=== PATIENT | female | born 1925 | race Caucasian/White ===

== ENCOUNTER 2016-04-02 13:44 | Inpatient (IN) ==
[2016-04-02] MEDS: Famotidine 20 MG TABLET PO SCH (20:04)
[2016-04-03 05:25] LABS: INR 1.2; Prothrombin Time 12.6 Seconds (9.4-12.1)
[2016-04-03 05:28] LABS: Activated Partial Thrombo Time 25.9 Seconds (26.0-36.0)
[2016-04-03 05:32] LABS: Basophils % 0.5 %; Eosinophils # 0.4 K/mcL (0.0-0.6); Hematocrit 38.5 % (35.3-44.9); Immature Granulocytes % 1.1 % (0-4); Lymphocytes # 2.1 K/mcL (0.6-4.6); Lymphocytes % 27.7 %; Mean Corpuscular HGB Conc 33.8 g/dL (31.6-35.5); Mean Corpuscular Hemoglobin 30.4 pg (28.0-33.3); Mean Corpuscular Volume 90.2 fL (83.0-100.0); Monocytes # 0.8 K/mcL (0.0-1.3); Monocytes % 9.9 %; Neutrophils # 4.2 K/mcL (1.6-8.9); Platelet Count 198 K/mcL (140-400); Red Blood Count 4.27 M/mcL (3.82-4.97); Red Cell Distribution Width 12.4 % (11.5-14.5); Segmented Neutrophils % 55.8 %
[2016-04-03 05:33] LABS: BUN/Creatinine Ratio 29 (6-26); Blood Urea Nitrogen 29 mg/dL (7-20); Calcium 9.4 mg/dL (8.6-10.8); Carbon Dioxide 27 mEq/L (19-29); Chloride 106 mEq/L (98-109); Glucose 96 mg/dL (70-99); Osmolality,Calculated 298 (280-300); Potassium 4.5 mEq/L (3.5-4.5); Sodium 141 mEq/L (136-145); eGFR For African Americans > 60 (> 60); eGFR For Non-African Americans 52 (> 60)
[2016-04-03] MEDS: Aspirin 81 MG TAB.CHEW PO SCH (08:07)
[2016-04-03] MEDS: Famotidine 20 MG TABLET PO SCH (08:07)
[2016-04-03] MEDS: Metoprolol XL (24 HR) Succ 50 MG TAB.ER.24H PO SCH (08:08)
--- NOTE | 2016-04-03 08:59 | Internal Med History&Physical ---
Date of Encounter: 04/03/16 Time of Encounter: 08:54 Assessment and Plan (1) CVA (cerebral vascular accident) Current visit: Yes Status: Acute Residual generalized weakness, lack of coordination, gait abnormality. We will consult speech, PT OT to work on balance, transferred gait and improving ADL. Qualifiers: CVA mechanism: unspecified Qualified Code(s): I63.9 - Cerebral infarction, unspecified Internal Medicine - H&P: HPI Admitted From: Intrahospital Transfer Plans for Post Hospital Care: Home History of present illness: Ms. ALEXANDRA is a 89 year old female who initially presented to [facility] on March 29 with generalized weakness. Symptoms came gradually. Symptoms started approximately 1 hour prior to presentation. She had difficulty with her balance, difficulty with her speech. She was diagnosed with a CVA. On today's examination she has no specific complaint other than unsteady and lack of coordination in walking and generalized weakness. She is no chest pain. Past Med Surg Social Fam HX - Past Medical History Medical history: CVA, hyperlipidemia, hypertension, thyroid disease - Social History Smoking Status: Unknown if ever smoked - Family History Mother History Unknown: Yes Father History Unknown: Yes Internal Medicine - H&P: Meds Acetaminophen [Tylenol] 500 mg PO Q6HR PRN 04/02/16 [History] Aspirin [Aspirin] 1 tab PO DAILY 04/02/16 [History] Calcium 600 + Vit D Tablet 1 tab PO DAILY 04/02/16 [History] Clopidogrel [Plavix] 75 mg PO DAILY 04/02/16 [History] DiphenhydraMINE [Benadryl] 25 mg PO HS PRN 04/02/16 [History] Famotidine [Pepcid] 20 mg PO BID 04/02/16 [History] Garlic [Garlic] 1 cap PO DAILY 04/02/16 [History] Levothyroxine [Synthroid] 50 mcg PO DAILY 04/02/16 [History] Metoprolol XL (24 HR) Succ [Toprol XL] 50 mg PO DAILY 04/02/16 [History] Potassium Chloride 10 mEq/100mL 1 tab PO DAILY 04/02/16 [History] Simvastatin [Zocor] 1 tab PO HS 04/02/16 [History] Triamterene/HCTZ 75/50mg [Maxzide] 0.5 each PO DAILY 04/02/16 [History] Allergies No Known Allergies Allergy (Verified 04/02/16 17:37) All Systems PM: A 10-system review of systems was performed and is negative for pertinent findings except as documented above in the HPI. - Constitutional Constitutional: no chills, no fever(s), no night sweats - Cardiovascular Cardiovascular ROS IM: no chest pain, no diaphoresis, no dyspnea, no lightheadedness, no palpitations, no syncope - Respiratory Respiratory: no cough, no dyspnea, no wheezing, no excessive phlegm production - Gastrointestinal Gastrointestinal: no abdominal pain, no diarrhea, no hematemesis, no hematochezia, no melena, no nausea, no vomiting - Musculoskeletal Musculoskeletal ROS IM: no numbness, no tingling - Integumentary Integumentary IM: no rash, no unusual bruising - Neurological Neurological ROS: abnormal gait, lack of coordination, no abnormal speech - Constitutional Vitals: Temp Pulse Resp BP Pulse Ox 98.5 F 118 18 148/70 92 L 04/03/16 07:00 04/03/16 07:00 04/03/16 07:00 04/03/16 07:00 04/03/16 07:00 General appearance: Present: A&O X 3, pleasant, no acute distress - Respiratory Respiratory exam: Present: CTAB. Absent: accessory muscle use, rales, rhonchi, wheezes - Cardiovascular Cardiovascular exam: Present: RRR, +S1, +S2. Absent: diastolic murmur, gallop, rubs, systolic murmur - GI/Abdominal GI/Abdominal exam: Present: normal bowel sounds, soft, no peritoneal signs. Absent: distended, tenderness - Extremities Exam Extremities exam: Present: warm, radial pulses palpable and symetrical. Absent : calf tenderness, cyanotic, pedal edema - Expanded Neurological Exam Patient oriented to: Present: person, place, time Internal Med - H&P Results - Labs CBC & Chem 7: 04/03/16 05:10 04/03/16 05:10 Labs: Short CBC 04/03/16 Range/Units 05:10 WBC 7.5 (4.3-11.1) K/mcL Hgb 13.0 (11.5-15.4) g/dL Hct 38.5 (35.3-44.9) % Plt Count 198 (140-400) K/mcL Neutrophils # 4.2 (1.6-8.9) K/mcL BMP 04/03/16 05:10 Sodium 141 Potassium 4.5 Chloride 106 Carbon Dioxide 27 BUN 29 H Creatinine 1.01 Glucose 96 Calcium 9.4 - VTE Documentation of Mechanical Device: Graduated compression elastic hosiery
[2016-04-03] MEDS: GARLIC PO SCH (13:07)
[2016-04-03] MEDS: CALCIUM PO SCH (13:07)
[2016-04-03] MEDS: VIT D PO SCH (13:07)
[2016-04-04] MEDS: Famotidine 20 MG TABLET PO SCH (09:42)
[2016-04-04] MEDS: Metoprolol XL (24 HR) Succ 50 MG TAB.ER.24H PO SCH (09:43)
[2016-04-04] MEDS: CALCIUM PO SCH (09:43)
[2016-04-04] MEDS: GARLIC PO SCH (09:43)
[2016-04-04] MEDS: VIT D PO SCH (09:43)
[2016-04-04] MEDS: Aspirin 81 MG TAB.CHEW PO SCH (09:43)
--- NOTE | 2016-04-04 13:15 | Internal Med Progress Note ---
Date of Encounter: 04/04/16 Time of Encounter: 13:13 - Assessment and plan (1) CVA (cerebral vascular accident) Current Visit: Yes Status: Acute Assessment and plan: Patient's doing fine with a wheeled walker she probably will do 3 weeks here she is setup advanced age but was independent up to this point. Qualifiers: CVA mechanism: unspecified Qualified Code(s): I63.9 - Cerebral infarction, unspecified - Time Spent With Patient less than 15 minutes - Subjective Interval history: Patient denies any sort of need at . My only concern is she has tremor and head luis and turbid evaluated and I was wondering very my not be a bad idea when she is discharged to make her appointment to see a neurologist. this point - Constitutional Vitals: Temp Pulse Resp BP Pulse Ox 98.3 F 60 18 157/71 92 L 04/04/16 07:26 04/04/16 07:26 04/04/16 07:26 04/04/16 07:26 04/04/16 07:26 General appearance: Present: A&O X 3, pleasant, no acute distress - Head Head exam: Present: normal inspection - Neck Neck exam general surgery: Present: supple, trachea midline. Absent: lymphadenopathy - Respiratory Respiratory exam: Present: CTAB. Absent: accessory muscle use, rales, rhonchi, wheezes - Cardiovascular Cardiovascular exam: Present: RRR, +S1, +S2. Absent: diastolic murmur, gallop, rubs, systolic murmur Internal Medicine: Result - Labs CBC & Chem 7: 04/03/16 05:10 04/03/16 05:10 Labs: UA is noted - ABG Interpretation ABG results: PT/INR, D-dimer PT 12.6 Seconds (9.4-12.1) H 04/03/16 05:10 - VTE Documentation of Mechanical Device: Graduated compression elastic hosiery Consult Discharge Plan - Plan Referrals: Valente Carter MD [Primary Care Provider] -
[2016-04-05] MEDS: Aspirin 81 MG TAB.CHEW PO SCH (08:12)
[2016-04-05] MEDS: Famotidine 20 MG TABLET PO SCH (08:12)
[2016-04-05] MEDS: CALCIUM PO SCH (08:13)
[2016-04-05] MEDS: GARLIC PO SCH (08:13)
[2016-04-05] MEDS: VIT D PO SCH (08:13)
[2016-04-05] MEDS: Metoprolol XL (24 HR) Succ 50 MG TAB.ER.24H PO SCH (08:13)
--- NOTE | 2016-04-05 13:49 | Internal Med Progress Note ---
Date of Encounter: 04/05/16 Time of Encounter: 13:47 - Assessment and plan (1) CVA (cerebral vascular accident) Current Visit: Yes Status: Acute Assessment and plan: Asians working with PT OT DTRs speech. Qualifiers: CVA mechanism: unspecified Qualified Code(s): I63.9 - Cerebral infarction, unspecified - Time Spent With Patient less than 15 minutes - Subjective Interval history: Patient is smiling pleasant socializing with family to spending in therapy. - Constitutional Vitals: Temp Pulse Resp BP Pulse Ox 97.3 F L 58 18 134/60 93 L 04/05/16 07:26 04/05/16 07:26 04/05/16 07:26 04/05/16 07:26 04/05/16 07:26 General appearance: Present: A&O X 3, pleasant, no acute distress - Head Head exam: Present: atraumatic, normal inspection, normocephalic - Neck Neck exam general surgery: Present: supple, trachea midline. Absent: lymphadenopathy - Respiratory Respiratory exam: Present: CTAB. Absent: accessory muscle use, rales, rhonchi, wheezes - Cardiovascular Cardiovascular exam: Present: RRR, +S1, +S2. Absent: diastolic murmur, gallop, rubs, systolic murmur Internal Medicine: Result - Labs CBC & Chem 7: 04/03/16 05:10 04/03/16 05:10 Labs: Lab looks good encouraged by mouth intake. - ABG Interpretation ABG results: PT/INR, D-dimer PT 12.6 Seconds (9.4-12.1) H 04/03/16 05:10 - VTE Documentation of Mechanical Device: Graduated compression elastic hosiery Consult Discharge Plan - Plan Referrals: Valente Carter MD [Primary Care Provider] -
[2016-04-05] MEDS: MOM Conc 10 ML UD.LIQ PO PRN (21:50)
[2016-04-06] MEDS: Metoprolol XL (24 HR) Succ 50 MG TAB.ER.24H PO SCH (08:13)
[2016-04-06] MEDS: Famotidine 20 MG TABLET PO SCH (08:13)
[2016-04-06] MEDS: VIT D PO SCH (08:13)
[2016-04-06] MEDS: CALCIUM PO SCH (08:13)
[2016-04-06] MEDS: GARLIC PO SCH (08:13)
[2016-04-06] MEDS: Aspirin 81 MG TAB.CHEW PO SCH (08:13)
--- NOTE | 2016-04-06 17:00 | Psychological Evaluation ---
Date of Encounter: 04/06/16 Time of Encounter: 01:30 History of Present Illness History of present illness: Ms. INFANTE is a 89 year old female admitted to [facility] following a recent stroke. Ms. Infante was seen on this date to assess her current cognitive and emotional functioning. Past Medical History Medical history: Significant for CVA, hyperlipidemia, HTN and thyroid disease. - Psychiatric History Additional Psychiatric History: There is no history of psychiatric hospitalization or suicidal ideation, intention or attempt. Ms. Infante has a history of anxiety and has been treated with medications by her primary care physician. Family psychiatric hx: There is no known family history of psychiatric or mental health issues. Home Medications and Allergies Acetaminophen [Tylenol] 500 mg PO Q6HR PRN 04/02/16 [History] Aspirin [Aspirin] 1 tab PO DAILY 04/02/16 [History] Calcium 600 + Vit D Tablet 1 tab PO DAILY 04/02/16 [History] Clopidogrel [Plavix] 75 mg PO DAILY 04/02/16 [History] DiphenhydraMINE [Benadryl] 25 mg PO HS PRN 04/02/16 [History] Famotidine [Pepcid] 20 mg PO BID 04/02/16 [History] Garlic [Garlic] 1 cap PO DAILY 04/02/16 [History] Levothyroxine [Synthroid] 50 mcg PO DAILY 04/02/16 [History] Metoprolol XL (24 HR) Succ [Toprol XL] 50 mg PO DAILY 04/02/16 [History] Potassium Chloride 10 mEq/100mL 1 tab PO DAILY 04/02/16 [History] Simvastatin [Zocor] 1 tab PO HS 04/02/16 [History] Triamterene/HCTZ 75/50mg [Maxzide] 0.5 each PO DAILY 04/02/16 [History] Allergies No Known Allergies Allergy (Verified 04/02/16 17:37) Social History - Social History Social History: Ms. Infante has been a for 2 years. She and her were for 66 years and had 4 children (sons ages 67 and 61; daughters ages 64 and 56). She stated that she had been the caregiver for her after he had a CVA and then was diagnosed with Alzheimer. Prior to her CVA, she lived alone and was independent. She stated that she had a niece who came by regularly and helped with pattern maker programer. Ms. Infante stated that her children and her niece are her main social support system. Her oldest son has her POA and assist with financial decisions. Ms. Infante described having been fairly active but noted she had slowed down this year and did not have a garden or do any yumi. - Tobacco Use Smoking Status: Never smoker - Alcohol Use Alcohol Use: none - Drug Use Drug Use: none Cognitive/Emotional Assessment - Cognitive Ability Additional Findings: Ms. Infante was alert, attentive and fully oriented. She performed within the mildly impaired range on a measures of attention/concentration, delayed verbal recall and sentence repetition. On measures of mental arithmetic and confrontation naming, she performed within the average range. She also performed within the average range on measures of abstract reasoning and social judgment. Of note, Ms. Infante presented as highly anxious and concerned about her performance. On tasks that required her to listen and then repeat, she tended to respond too quickly before the information was fully presented. Ms. Infante was also noted to want to give up easily and say "I don't know" with harder tasks. - Emotional Status Additional Findings: Ms. Infante was pleasant, cooperative and friendly. Speech was clear, fluent and effective. She spoke at a a normal rate and intensity. Thought processes were logical, coherent and goal-directed. There were no signs of delusional ideation or perceptual disturbances. Mood appeared euthymic but she acknowledged that she has been battling feelings of depression/sadness and loneliness since her 's two years ago. She became tearful whenever she mentioned her and how much she misses him. 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 Infante is on the inpatient rehabilitation unit. Ms. Infante will need reassurance regarding her performance and encouragement to take her time and not give up quickly on more difficult tasks. Procedures - Intervention Interventions: Supportive Counseling - Session Time Session Start Time: 13:30 Session Stop Time: 14:00
[2016-04-07] MEDS: Metoprolol XL (24 HR) Succ 50 MG TAB.ER.24H PO SCH (09:14)
[2016-04-07] MEDS: VIT D PO SCH (09:15)
[2016-04-07] MEDS: GARLIC PO SCH (09:15)
[2016-04-07] MEDS: Famotidine 20 MG TABLET PO SCH (09:15)
[2016-04-07] MEDS: CALCIUM PO SCH (09:15)
[2016-04-07] MEDS: Aspirin 81 MG TAB.CHEW PO SCH (09:21)
--- NOTE | 2016-04-07 14:16 | Internal Med Progress Note ---
Date of Encounter: 04/07/16 Time of Encounter: 14:14 - Assessment and plan (1) CVA (cerebral vascular accident) Current Visit: Yes Status: Acute Assessment and plan: Vertigo with PT OT DR and speech. Doing very well pleasant Qualifiers: CVA mechanism: unspecified Qualified Code(s): I63.9 - Cerebral infarction, unspecified - Time Spent With Patient less than 15 minutes - Subjective Interval history: Patient is smiling pleasant socializing with family to spending in therapy. Continuing to work with the therapist - Constitutional Vitals: Temp Pulse Resp BP Pulse Ox 97.8 F 64 18 150/84 96 04/07/16 07:41 04/07/16 07:41 04/07/16 07:41 04/07/16 07:41 04/07/16 07:41 General appearance: Present: A&O X 3, pleasant, no acute distress - Head Head exam: Present: atraumatic, normal inspection, normocephalic - Neck Neck exam general surgery: Present: supple, trachea midline. Absent: lymphadenopathy - Respiratory Respiratory exam: Present: CTAB. Absent: accessory muscle use, rales, rhonchi, wheezes - Cardiovascular Cardiovascular exam: Present: RRR, +S1, +S2. Absent: diastolic murmur, gallop, rubs, systolic murmur - GI/Abdominal GI/Abdominal exam: Present: normal bowel sounds, soft, no peritoneal signs. Absent: distended, tenderness Internal Medicine: Result - Labs CBC & Chem 7: 04/03/16 05:10 04/03/16 05:10 Labs: Stable - ABG Interpretation ABG results: PT/INR, D-dimer PT 12.6 Seconds (9.4-12.1) H 04/03/16 05:10 - VTE Documentation of Mechanical Device: Graduated compression elastic hosiery Consult Discharge Plan - Plan Referrals: Valente Carter MD [Primary Care Provider] -
[2016-04-08] MEDS: Metoprolol XL (24 HR) Succ 50 MG TAB.ER.24H PO SCH (08:10)
[2016-04-08] MEDS: Famotidine 20 MG TABLET PO SCH (08:10)
[2016-04-08] MEDS: GARLIC PO SCH (08:11)
[2016-04-08] MEDS: CALCIUM PO SCH (08:11)
[2016-04-08] MEDS: VIT D PO SCH (08:11)
[2016-04-08] MEDS: Aspirin 81 MG TAB.CHEW PO SCH (08:11)
--- NOTE | 2016-04-08 14:48 | Internal Med Progress Note ---
Date of Encounter: 04/08/16 Time of Encounter: 14:46 - Assessment and plan (1) CVA (cerebral vascular accident) Current Visit: Yes Status: Acute Assessment and plan: Patient's here worker PT OT and TR and speech. Qualifiers: CVA mechanism: unspecified Qualified Code(s): I63.9 - Cerebral infarction, unspecified - Time Spent With Patient less than 15 minutes - Subjective Interval history: Patient is smiling pleasant socializing with family to spending in therapy. Continuing to work with the therapist. Patient denies any needs at this time she is smiling cooperative and very social - Constitutional Vitals: Temp Pulse Resp BP Pulse Ox 98.3 F 67 18 129/59 93 L 04/08/16 07:14 04/08/16 07:14 04/08/16 07:14 04/08/16 07:14 04/08/16 07:14 General appearance: Present: A&O X 3, pleasant, no acute distress - Head Head exam: Present: atraumatic, normal inspection, normocephalic - Neck Neck exam general surgery: Present: supple, trachea midline. Absent: lymphadenopathy - Respiratory Respiratory exam: Present: CTAB. Absent: accessory muscle use, rales, rhonchi, wheezes - Cardiovascular Cardiovascular exam: Present: RRR, +S1, +S2. Absent: diastolic murmur, gallop, rubs, systolic murmur Internal Medicine: Result - Labs CBC & Chem 7: 04/03/16 05:10 04/03/16 05:10 Labs: Labs stable - ABG Interpretation ABG results: PT/INR, D-dimer PT 12.6 Seconds (9.4-12.1) H 04/03/16 05:10 - VTE Documentation of Mechanical Device: Graduated compression elastic hosiery Consult Discharge Plan - Plan Referrals: Valente Carter MD [Primary Care Provider] -
[2016-04-09] MEDS: Aspirin 81 MG TAB.CHEW PO SCH (07:57)
[2016-04-09] MEDS: GARLIC PO SCH (07:58)
[2016-04-09] MEDS: CALCIUM PO SCH (07:58)
[2016-04-09] MEDS: Famotidine 20 MG TABLET PO SCH (07:58)
[2016-04-09] MEDS: VIT D PO SCH (07:58)
[2016-04-09] MEDS: Metoprolol XL (24 HR) Succ 50 MG TAB.ER.24H PO SCH (07:59)
--- NOTE | 2016-04-09 14:39 | Internal Med Progress Note ---
Date of Encounter: 04/09/16 Time of Encounter: 14:38 - Assessment and plan (1) CVA (cerebral vascular accident) Current Visit: Yes Status: Acute Assessment and plan: Patient's improving with PT OT. Gait, balance, activity of daily living task improving. Qualifiers: CVA mechanism: unspecified Qualified Code(s): I63.9 - Cerebral infarction, unspecified - Time Spent With Patient less than 15 minutes - Subjective Interval history: Feeling better today. No shortness of breath. No chest pain. No headache. Gaining strength. Good appetite. - Constitutional Vitals: Temp Pulse Resp BP Pulse Ox 98.8 F 63 18 115/69 93 L 04/09/16 07:40 04/09/16 07:40 04/09/16 07:40 04/09/16 07:40 04/09/16 07:40 General appearance: Present: A&O X 3, pleasant, no acute distress - Respiratory Respiratory exam: Present: CTAB. Absent: accessory muscle use, rales, rhonchi, wheezes - Cardiovascular Cardiovascular exam: Present: RRR, +S1, +S2. Absent: diastolic murmur, gallop, rubs, systolic murmur - GI/Abdominal GI/Abdominal exam: Present: normal bowel sounds, soft, no peritoneal signs. Absent: distended, tenderness - Extremities Exam Extremities exam: Present: warm, radial pulses palpable and symetrical. Absent : calf tenderness, cyanotic, pedal edema - Neurological Exam Neurological exam: Present: oriented X3, no focal deficits. Absent: pronater drift, facial droop, speech deficit - Skin Skin exam: Present: dry, intact Internal Medicine: Result - Labs CBC & Chem 7: 04/03/16 05:10 04/03/16 05:10 - ABG Interpretation ABG results: PT/INR, D-dimer PT 12.6 Seconds (9.4-12.1) H 04/03/16 05:10 - VTE Documentation of Mechanical Device: Graduated compression elastic hosiery Consult Discharge Plan - Plan Referrals: Valente Carter MD [Primary Care Provider] -
[2016-04-10] MEDS: CALCIUM PO SCH (08:01)
[2016-04-10] MEDS: GARLIC PO SCH (08:01)
[2016-04-10] MEDS: VIT D PO SCH (08:01)
[2016-04-10] MEDS: Metoprolol XL (24 HR) Succ 50 MG TAB.ER.24H PO SCH (08:13)
[2016-04-10] MEDS: Aspirin 81 MG TAB.CHEW PO SCH (08:14)
[2016-04-10] MEDS: Famotidine 20 MG TABLET PO SCH (08:14)
[2016-04-11 06:19] LABS: Basophils % 0.5 %; Eosinophils # 0.3 K/mcL (0.0-0.6); Eosinophils % 4.1 %; Hematocrit 38.1 % (35.3-44.9); Hemoglobin 12.8 g/dL (11.5-15.4); Immature Granulocytes % 0.6 % (0-4); Lymphocytes # 1.8 K/mcL (0.6-4.6); Lymphocytes % 22.3 %; Mean Corpuscular HGB Conc 33.6 g/dL (31.6-35.5); Mean Corpuscular Hemoglobin 30.5 pg (28.0-33.3); Mean Corpuscular Volume 90.9 fL (83.0-100.0); Mean Platelet Volume 11.8 fL (9.4-12.4); Monocytes % 12.9 %; Neutrophils # 4.7 K/mcL (1.6-8.9); Platelet Count 208 K/mcL (140-400); Red Blood Count 4.19 M/mcL (3.82-4.97); Red Cell Distribution Width 12.5 % (11.5-14.5); Segmented Neutrophils % 59.6 %
[2016-04-11 06:30] LABS: Calcium 9.2 mg/dL (8.6-10.8); Potassium 4.1 mEq/L (3.5-4.5)
[2016-04-11] MEDS: Famotidine 20 MG TABLET PO SCH (08:25)
[2016-04-11] MEDS: Metoprolol XL (24 HR) Succ 50 MG TAB.ER.24H PO SCH (08:26)
[2016-04-11] MEDS: Aspirin 81 MG TAB.CHEW PO SCH (08:26)
[2016-04-11] MEDS: GARLIC PO SCH (08:27)
[2016-04-11] MEDS: VIT D PO SCH (08:27)
[2016-04-11] MEDS: CALCIUM PO SCH (08:27)
--- NOTE | 2016-04-11 14:28 | Internal Med Progress Note ---
Date of Encounter: 04/11/16 Time of Encounter: 14:26 - Assessment and plan (1) CVA (cerebral vascular accident) Current Visit: Yes Status: Acute Assessment and plan: Patient has been working well with PT OT and TR. Qualifiers: CVA mechanism: unspecified Qualified Code(s): I63.9 - Cerebral infarction, unspecified - Time Spent With Patient less than 15 minutes - Subjective Interval history: Patient is doing well smiling and has no complaints currently walking around the unit with a walker. - Constitutional Vitals: Temp Pulse Resp BP Pulse Ox 98.4 F 64 18 138/68 96 04/11/16 11:58 04/11/16 11:58 04/11/16 11:58 04/11/16 11:58 04/11/16 11:58 General appearance: Present: A&O X 3, pleasant, no acute distress - Head Head exam: Present: atraumatic, normal inspection, normocephalic - Respiratory Respiratory exam: Present: CTAB. Absent: accessory muscle use, rales, rhonchi, wheezes - Cardiovascular Cardiovascular exam: Present: RRR, +S1, +S2. Absent: diastolic murmur, gallop, rubs, systolic murmur - GI/Abdominal GI/Abdominal exam: Present: normal bowel sounds, soft, no peritoneal signs. Absent: distended, tenderness Internal Medicine: Result - Labs CBC & Chem 7: 04/11/16 06:05 04/11/16 06:05 Labs: Short CBC 04/11/16 Range/Units 06:05 WBC 7.9 (4.3-11.1) K/mcL Hgb 12.8 (11.5-15.4) g/dL Hct 38.1 (35.3-44.9) % Plt Count 208 (140-400) K/mcL Neutrophils # 4.7 (1.6-8.9) K/mcL BMP 04/11/16 06:05 Sodium 141 Potassium 4.1 Chloride 104 Carbon Dioxide 28 BUN 37 H Creatinine 1.08 Glucose 100 H Calcium 9.2 Lab is stable - ABG Interpretation ABG results: PT/INR, D-dimer PT 12.6 Seconds (9.4-12.1) H 04/03/16 05:10 - VTE Documentation of Mechanical Device: Graduated compression elastic hosiery Consult Discharge Plan - Plan Referrals: Valente Carter MD [Primary Care Provider] - 04/19/16 10:30 am Jia Tesfaye MD [Partnered Physician] - 04/13/16 1:00 pm
[2016-04-11] MEDS: MOM Conc 10 ML UD.LIQ PO PRN (18:12)
[2016-04-12] MEDS: Metoprolol XL (24 HR) Succ 50 MG TAB.ER.24H PO SCH (10:03)
[2016-04-12] MEDS: Famotidine 20 MG TABLET PO SCH (10:03)
[2016-04-12] MEDS: Aspirin 81 MG TAB.CHEW PO SCH (10:03)
[2016-04-12] MEDS: VIT D PO SCH (10:04)
[2016-04-12] MEDS: GARLIC PO SCH (10:04)
[2016-04-12] MEDS: CALCIUM PO SCH (10:04)
--- NOTE | 2016-04-12 13:45 | Discharge Summary ---
Date of Encounter: 04/12/16 Time of Encounter: 13:42 - Discharge Diagnosis (1) CVA (cerebral vascular accident) Priority: Primary Status: Acute Comments: Patient done exceedingly well. Qualifiers: CVA mechanism: unspecified Qualified Code(s): I63.9 - Cerebral infarction, unspecified - Discharge Medications Home Medications: Acetaminophen [Tylenol] 500 mg PO Q6HR PRN 04/02/16 [History] Aspirin [Aspirin] 1 tab PO DAILY 04/02/16 [History] Calcium 600 + Vit D Tablet 1 tab PO DAILY 04/02/16 [History] Clopidogrel [Plavix] 75 mg PO DAILY 04/02/16 [History] DiphenhydraMINE [Benadryl] 25 mg PO HS PRN 04/02/16 [History] Famotidine [Pepcid] 20 mg PO BID 04/02/16 [History] Garlic [Garlic] 1 cap PO DAILY 04/02/16 [History] Levothyroxine [Synthroid] 50 mcg PO DAILY 04/02/16 [History] Metoprolol XL (24 HR) Succ [Toprol XL] 50 mg PO DAILY 04/02/16 [History] Potassium Chloride 10 mEq/100mL 1 tab PO DAILY 04/02/16 [History] Simvastatin [Zocor] 1 tab PO HS 04/02/16 [History] Triamterene/HCTZ 75/50mg [Maxzide] 0.5 each PO DAILY 04/02/16 [History] Allergies/Adverse Reactions: Allergies No Known Allergies Allergy (Verified 04/02/16 17:37) Date of admission: 04/02/16 14:00 Primary care physician: Valente Carter MD Consults: 04/02/16 18:03 Consult to Occupational Therapy [CONS] Routine Comment: Evaluate, develop and implement POC Consult to Physical Therapy [CONS] Routine Comment: Evaluate, develop and implement POC Consult to Recreational Therapy [CONS] Routine Comment: Evaluate, develop and implement POC Consult to Speech Therapy [CONS] Routine Comment: Evaluate, develop and implement POC Reason for Consult: speech impairment Call Completed: Yes 04/05/16 15:45 Consult to Psychology [CONS] Routine Consulting Provider: Yeimi Mary Reason for Consult: cva Time Notified: 15:46 Call Completed: Yes Discharging clinician: Luiz Fish Anticipated date of discharge: 04/13/16 - Patient Status Disposition: Home Health Service Condition: Good Functional capacity at discharge: uses cane/walker Overall status at discharge: patient is progressing back to baseline - Discharge Instructions Follow Up With: Valente Carter MD [Primary Care Provider] - 04/19/16 10:30 am Jia Tesfaye MD [Partnered Physician] - 04/13/16 1:00 pm - Diet and Activity Activity: ambulate only with your walker Diet: advance to your usual diet Interval History: Patient was sent here after being diagnosed with a CVA Hospital course: Ms. ALEXANDRA is a 89 year old fem patient has improved considerably. Stephanie was an issue but is much improved she is ambulating with a walker. - Time Spent with Patient Total time spent providing and/or coordinating discharge services: Less than 30 minutes - Constitutional Vitals: Temp Pulse Resp BP Pulse Ox 97.7 F 69 18 144/73 97 04/12/16 06:58 04/12/16 06:58 04/12/16 06:58 04/12/16 06:58 04/12/16 06:58 General appearance: Present: A&O X 3, pleasant, no acute distress - Head Head exam: Present: atraumatic, normal inspection, normocephalic - Neck Neck exam general surgery: Present: supple, trachea midline. Absent: lymphadenopathy - Respiratory Respiratory exam: Present: CTAB. Absent: accessory muscle use, rales, rhonchi, wheezes - Cardiovascular Cardiovascular exam: Present: RRR, +S1, +S2. Absent: diastolic murmur, gallop, rubs, systolic murmur - Neurological Exam Neurological exam: Present: CN II-XII intact, oriented X3, no focal deficits. Absent: pronater drift, facial droop, speech deficit Additional comments: Patient does have essential tremor type tremors in the upper extremities and head bobbing. - VTE Documentation of Mechanical Device: Graduated compression elastic hosiery
--- NOTE | 2016-04-12 13:47 | Physician Discharge Referral ---
Home Health/Hosp Referral Info Transfer to: Home Health Provider in Charge Post Discharge: PCP - Diagnosis (1) CVA (cerebral vascular accident) Priority: Primary Status: Acute - Respiratory Orders Smoking Cessation: Smoking cessation has been advised. For more information, call the [place] Tobacco Quit Line at 6-204-KKJC-NOW. - Diet/Nutrition Diet/Nutrition Orders: Regular - Activity Activity Orders: Walker - Services Needed Following services are medically necessary services: Nursing, Physical Therapy - Transfer Medications Home Medications: Acetaminophen [Tylenol] 500 mg PO Q6HR PRN 04/02/16 [History] Aspirin [Aspirin] 1 tab PO DAILY 04/02/16 [History] Calcium 600 + Vit D Tablet 1 tab PO DAILY 04/02/16 [History] Clopidogrel [Plavix] 75 mg PO DAILY 04/02/16 [History] DiphenhydraMINE [Benadryl] 25 mg PO HS PRN 04/02/16 [History] Famotidine [Pepcid] 20 mg PO BID 04/02/16 [History] Garlic [Garlic] 1 cap PO DAILY 04/02/16 [History] Levothyroxine [Synthroid] 50 mcg PO DAILY 04/02/16 [History] Metoprolol XL (24 HR) Succ [Toprol XL] 50 mg PO DAILY 04/02/16 [History] Potassium Chloride 10 mEq/100mL 1 tab PO DAILY 04/02/16 [History] Simvastatin [Zocor] 1 tab PO HS 04/02/16 [History] Triamterene/HCTZ 75/50mg [Maxzide] 0.5 each PO DAILY 04/02/16 [History] Allergies/Adverse Reactions: Allergies No Known Allergies Allergy (Verified 04/02/16 17:37) Certification: Further, I certify that my clinical findings support that this patient is homebound (i.e. absences from home require considerable and taxing effort and are for medical reasons or nondenominational services or infrequently or short duration when for other reasons) because: Homebound Reason: Patient requires assistance of a person or device to safely leave home Attestation: My signature below is to certify that this patient is under my care and that I, or nurse practitioner, or a physician's special education assistant working with me, has a face-to -face encounter with this patient.
[2016-04-13 07:59] VITALS: BP 129/63
[2016-04-13] MEDS: CALCIUM PO SCH (09:31)
[2016-04-13] MEDS: Famotidine 20 MG TABLET PO SCH (09:31)
[2016-04-13] MEDS: Metoprolol XL (24 HR) Succ 50 MG TAB.ER.24H PO SCH (09:31)
[2016-04-13] MEDS: GARLIC PO SCH (09:31)
[2016-04-13] MEDS: Aspirin 81 MG TAB.CHEW PO SCH (09:31)
[2016-04-13] MEDS: VIT D PO SCH (09:31)
== END 2016-04-13 12:00 | disposition home health service (06) | DRG 57 ==
LOC: INPGRE 14:00
PROVIDERS: ADMIT Internal Medicine; ATTEND Internal Medicine